=== PATIENT | male | born 1995 | race Caucasian/White ===

== ENCOUNTER 2019-01-10 18:20 | Emergency (ER) | payer SELFPAY ==
--- NOTE | 2019-01-10 19:05 | ED Physician Documentation ---
General Adult - HPI Stated Complaint: head laceration Chief Complaint: Laceration/Recheck/Suture Onset: hours (1) Timing: still present Severity: moderate - ROS CONST: no problems EYES/ENT: none CVS/RESP: none GI/: none MS/SKIN/LYMPH: none NEURO/PSYCH: denies: headache - PAST HX Past History: none Other History: none Surgeries/Procedures: none Allergies/Adverse Reactions: Allergies Allergy/AdvReac Type Severity Reaction Status Date / Time No Known Allergies Allergy Verified 01/10/19 19:39 Home Medications: Ambulatory Orders Medication Instructions Recorded NK 01/10/19 - SOCIAL HX Smoking History: non-smoker Alcohol Use: none Drug Use: none - FAMILY HX Family History: No - VITAL SIGNS Vital Signs: Vital Signs Temp Pulse Resp BP Pulse Ox 98.1 F 74 16 112/58 96 01/10/19 18:25 01/10/19 18:25 01/10/19 18:25 01/10/19 18:25 01/10/19 18:25 - REVIEWED ASSESSMENTS Nursing Assessment Reviewed: Yes Vitals Reviewed: Yes Procedures Wound Length: 6 cm Wound's Depth, Shape: into muscle, linear Wound Explored: clean Irrigated w/ Saline (ccs): 100 Betadine Prep?: No Anesthesia: 1% Lidocaine Volume of Anesthetic: 5 Wound Debrided: minimal Wound Repaired With: luther Number of Sutures: 8 Sterile Dressing Applied?: Yes Splint Applied?: No Sling Applied?: No ED Results Lab/Radiology - Lab Results Lab Results: Lab Results 01/10/19 01/10/19 01/10/19 18:50 18:50 18:50 WBC 7.70 K/ul K/ul (4.00-12.00) RBC 4.91 M/ul M/ul (3.90-5.20) Hgb 14.2 g/dL g/dL (12.0-18.0) Hct 42.4 % % (37.0-53.0) MCV 86.0 fl fl (80.0-100.0) MCH 28.9 pg pg (28.0-34.0) MCHC 33.4 g/dL g/dL (30.0-36.0) RDW 13.7 % % (11.3-14.3) Plt Count 201 K/mm3 K/mm3 (130-400) Neut % (Auto) 64.2 % % (39.0-79.0) Lymph % (Auto) 30.0 % % (16.0-50.0) Wayne % (Auto) 4.0 % % (0.0-11.0) Eos % (Auto) 1.1 % % (0.0-6.8) Baso % (Auto) 0.7 % % (0.0-1.5) Neut # (Auto) 5.0 # k/uL # k/uL (1.4-7.7) Lymph # (Auto) 2.3 # k/uL # k/uL (0.6-4.0) Wayne # (Auto) 0.3 # k/uL # k/uL (0.0-0.9) Eos # (Auto) 0.1 # k/uL # k/uL (0.0-0.6) Baso # (Auto) 0.1 # k/uL # k/uL (0.0-0.5) Sodium 141 mmol/L mmol/L (137-145) Potassium 3.6 mmol/L mmol/L (3.5-5.1) Chloride 106 mmol/L mmol/L (98-107) Carbon Dioxide 22 mmol/L mmol/L (22-30) BUN 16 mg/dL mg/dL (9-20) Creatinine 1.00 mg/dL mg/dL (0.66-1.25) Est GFR ( Amer) > 60 (60 - ) Est GFR (Non-Af Amer) > 60 (60 - ) Glucose 87 mg/dL mg/dL (74-106) Calcium 8.6 mg/dL mg/dL (8.4-10.2) Total Bilirubin 0.3 mg/dL mg/dL (0.2-1.3) AST 31 U/L U/L (15-46) ALT 11 U/L U/L (0-50) Alkaline Phosphatase 70 U/L U/L (38-126) Total Protein 7.1 g/dL g/dL (6.3-8.2) Albumin 4.3 g/dL g/dL (3.5-5.0) Ethyl Alcohol 158.0 mg/dL H mg/dL (0.0-10.0) - Radiology Radiology Impressions: Report Submission Date: Jan 10, 2019 7:23:25 PM CDT Patient Study Name: ROGELIO DO Date: Jan 10, 2019 6:46:11 PM CDT Modality Type: CT\SR Gender: M Description: CT BRAIN W/O CONTRAST : 93 Institution: [facility] Physician: DO COATS CT head without contrast HISTORY Fall, head injury TECHNIQUE Images through the brain were obtained without contrast. FINDINGS No mass, midline shift, hydrocephalus or hemorrhage is present. The ventricles are normal. No extra-axial fluid collection is identified. IMPRESSION Normal. Electronically signed on Jan 10, 2019 7:23:25 PM CDT by: Kendrick Way - Orders Orders: ED Orders Category Date Time Status Place IV Lock 1T Care 01/10/19 18:57 Active Luther 1T Care 01/10/19 19:[address] BRAIN W/O CONTRAST Stat Exams 01/10/19 Taken ALCOHOL MEDICAL USE ONLY Stat Lab 01/10/19 18:50 Completed CBC/PLATELET/DIFF Routine Lab 01/10/19 18:50 Completed CMP Routine Lab 01/10/19 18:50 Completed Lidocaine 1% 5ml [Xylocaine] Med 01/10/19 19:30 Discontinued 50 mg IJ NOW ONE General Adult Physical Exam - PHYSICAL EXAM GENERAL APPEARANCE: no distress EENT: MINI, other (occipital-parietal 6cm laceration) NECK: supple RESPIRATORY: no resp distress, chest non-tender, breath sounds normal CVS: reg rate & rhythm, heart sounds normal ABDOMEN: soft, normal bowel sounds BACK: normal inspection, no CVA tenderness SKIN: warm/dry, normal color EXTREMITIES: non-tender, no evidence of injury NEURO: oriented X3, motor nml Discharge Clincal Impression: Laceration of head Qualifiers: Encounter type: initial encounter Location of open wound of head: scalp Foreign body presence: without foreign body Qualified Code(s): S01.01XA - Laceration without foreign body of scalp, initial encounter Head injury due to trauma Qualifiers: Encounter type: initial encounter Qualified Code(s): S09.90XA - Unspecified injury of head, initial encounter Referrals: Primary Doctor,No [Primary Care Provider] - 2 Days Additional Instructions: 1. Tylenol and/or Ibuprofen as needed for pain 2. Keep wound clean and dry. You may shower, quickly pat wound dry with towel 4. Follow up with PCP or ER for staple removal in 7-10 days 5. Return to ER for new or worsening symptoms Condition: Stable Disposition: 01 HOME, SELF-CARE Decision to Admit: NO Date of Decison to Admit: 01/10/19 Decision Time: 20:05
[2019-01-10 19:07] LABS: BASOPHILS % 0.7 % (0.0-1.5); EOSINOPHILS % 1.1 % (0.0-6.8); MEAN CORPUSCULAR HEMOGLOBIN 28.9 pg (28.0-34.0)
[2019-01-10 19:16] LABS: eGFR (Non-African) > 60
[2019-01-10] MEDS ORDERED: Lidocaine 1% 5ml 10 MG/ML VIAL IJ ONE (19:30)
--- NOTE | 2019-01-10 20:18 | Diagnostic Imaging Report ---
DO COATS [facility] [address] [facility] [address] [place], [place]. [address] Report Submission Date: Jan 10, 2019 7:23:25 PM CDT Patient Study Name: ROGELIO DO Date: Jan 10, 2019 6:46:11 PM CDT Modality Type: CT\SR Gender: M Description: CT BRAIN W/O CONTRAST : 93 Institution: [facility] Physician: DO COATS CT head without contrast HISTORY Fall, head injury TECHNIQUE Images through the brain were obtained without contrast. FINDINGS No mass, midline shift, hydrocephalus or hemorrhage is present. The ventricles are normal. No extra-axial fluid collection is identified. IMPRESSION Normal. Electronically signed on Jan 10, 2019 7:23:25 PM CDT by: Kendrick SESAY
[2019-01-10 20:40] VITALS: BP 105/61
== END 2019-01-10 20:33 | disposition home or self-care (01) ==
LOC: ED 18:20
DX: S01.01XA Laceration without foreign body of scalp, initial encounter (principal); V80.010A Animal-rider injured by fall from or being thrown from horse in noncollision accident, initial encounter; Y93.9 Activity, unspecified; Y92.9 Unspecified place or not applicable
CPT/HCPCS: 12002; 36415; 70450; 80053; 80320; 85025; 99283; 99284; G0480; S1016

== ENCOUNTER 2019-01-22 12:24 | Emergency (ER) | payer SELFPAY ==
[2019-01-22 12:53] VITALS: BP 108/62
--- NOTE | 2019-01-22 12:55 | ED Physician Documentation ---
Suture Removal - HISTORIAN Historian: patient - HPI Stated Complaint: staple removal Chief Complaint: Suture Removal (8 Gipsy in Scalp) Additional Information: Patient is a 23-year-old male that presents to the ER to have marie removed from scalp. He was seen in the ER on 01/10/19 after falling off a horse and sustaining a laceration to his scalp- 8 marie were placed. He denies any headaches, dizziness, visual disturbances, or memory loss. Previous ER Treatment: laceration repair Antibiotics Given: none Symptoms Since Procedure: none Further Comments: no - ROS NEURO: denies: headache, dizziness CONST: no problems EYES/ENT: none CVS/RESP: none MS/SKIN/LYMPH: denies: rash GI/: none - PAST HX Past History: none Immunizations: UTD Allergies/Adverse Reactions: Allergies Allergy/AdvReac Type Severity Reaction Status Date / Time No Known Allergies Allergy Verified 01/22/19 12:54 Home Medications: Ambulatory Orders Medication Instructions Recorded NK 01/10/19 - SOCIAL HX Smoking History: less than 1 pack/day Alcohol Use: occasionally Drug Use: none - FAMILY HX Family History: none - VITAL SIGNS Vital Signs: Vital Signs Temp Pulse Resp BP Pulse Ox 98.0 F 76 14 108/62 99 01/22/19 12:57 01/22/19 12:57 01/22/19 12:57 01/22/19 12:57 01/22/19 12:57 - REVIEWED ASSESSMENTS Nursing Assessment Reviewed: Yes Vitals Reviewed: Yes Procedures Progress: 8 marie removed from scalp without difficulty- laceration healed- no redness/erythema/drainage- patient tolerated well; kept marie. Suture Removal Physical Exam - Physical Exam General Appearance: no acute distress, alert Neuro/Vascular/Tendon: motor nml, sensation nml Healing Wound: no infection Head/ENT: nml inspection, other (8 marie to scalp- intact without redness/erythema/drainage) Neck/Back: nml inspection Respiratory: breath sounds nml CVS: heart sounds nml Abdomen: nml bowel sounds Discharge Clincal Impression: Removal of staple Referrals: Primary Doctor,No [Primary Care Provider] - 2 Days Additional Instructions: 8 Marie removed May wash hair Follow up with PCP as needed Condition: Good Disposition: 01 HOME, SELF-CARE Decision to Admit: NO Decision Time: 12:56
== END 2019-01-22 12:57 | disposition home or self-care (01) ==
LOC: ED 12:24
DX: Z48.02 Encounter for removal of sutures (principal)